=== PATIENT | female | born 1950 | race Caucasian/White ===

== ENCOUNTER → 2016-11-29 | Outpatient (CLI) | payer OTHER, BC ==
--- NOTE | 2016-11-29 11:54 | DIAGNOSTIC IMAGING REPORT ---
PA CHEST RADIOGRAPH AND UPRIGHT AND SUPINE AP RADIOGRAPHS OF THE ABDOMEN CLINICAL HISTORY: Abdominal pain. COMPARISON STUDY: Chest radiograph March 07, 2016. FINDINGS: Lung volumes are normal. Lungs are clear. There is no pneumothorax or pleural effusion. Cardiac size is normal. Mediastinal contours are normal. There is no free air. The bowel gas pattern is normal. IMPRESSION: 1. No free air or evidence of bowel obstruction. 2. No acute cardiopulmonary findings. 3. Indeterminate 1.7 cm linear radiodensity that projects over the medial left iliac bone. Electronically signed by: Pete Colvin M.D. 11/29/2016 11:52 AM Dictated Date/Time: 11/29/2016 11:51 AM
== END | disposition home or self-care (01) ==
LOC: C.RAD1850 11:15
PROVIDERS: ATTEND Nurse Practitioner Family
DX: R10.30 Lower abdominal pain, unspecified (principal); E03.8 Other specified hypothyroidism; K59.09 Other constipation; K58.9 Irritable bowel syndrome, unspecified

== ENCOUNTER → 2017-02-05 | Outpatient (CLI) | payer OTHER, BC ==
--- NOTE | 2017-02-05 16:29 | DIAGNOSTIC IMAGING REPORT ---
LEFT WRIST MIN 3 VIEWS ROUTINE CLINICAL HISTORY: Left wrist pain status post trauma COMPARISON: None. DISCUSSION: The bones are osteopenic. No fractures or dislocations are visualized. Slight posterior displacement of the distal ulna with respect to the radius is felt to be positional. IMPRESSION: Osteopenia. No acute fractures identified. Electronically signed by: Jorge Paul M.D. 02/05/2017 4:28 PM Dictated Date/Time: 02/05/2017 4:26 PM
== END | disposition home or self-care (01) ==
LOC: C.RAD1850 15:56
PROVIDERS: ATTEND Family Medicine
DX: M25.532 Pain in left wrist (principal); M85.88 Other specified disorders of bone density and structure, other site

== ENCOUNTER → 2017-10-09 | Outpatient (CLI) | payer OTHER, BC | END | disposition home or self-care (01) | LOC: C.MAMM 15:08 | PROVIDERS: ATTEND Nurse Practitioner Family | DX: Z13.820 Encounter for screening for osteoporosis (principal) ==